=== PATIENT | female | born 1960 | race Two or more races ===

== ENCOUNTER 2024-08-08 09:23 | Day surgery (SDC) | payer MEDICARE, MEDICAID ==
[2024-08-08] VITALS (12 sets, daily range): BP systolic 111–128; BP diastolic 55–85; PULSE 79–86; RESP 9–17; TEMP 98.1; O2SAT 93–99
[~2024-08-08] VITALS: Ht 160 cm; Wt 90.2 kg
[2024-08-08] MEDS: ceFAZolin 2gm in dextrose, iso 50 ML IV ONE (05:30)
[~2024-08-08 09:23] MED LIST: ATOR40TA72 PO; BUPIVACAINE liposomal/PF 13.3 MG/ML 10mL vial IM ONE; BUPIVAcaine 2.5mg/ml inj 50ml vial (contains preservative) ONE; CLON0.5T4 PO; LEVO137T2 PO; LIDOcaine 1% 30ml preserv. free vial ONE; methylene blue (5mg/ml) 50mg/10ml ampul IV ONE
--- NOTE | 2024-08-08 09:49 | ELECTROCARDIOGRAPH REPORT ---
[facility] Test Date: 2024-08-08 Test Time: 09:47:59 Pat Name: NANCY RIVAS Department: [facility]-PRE-OP Patient ID: [facility]-[id number] Room: Gender: F [employer] Rec[employer]ing Manager: KELLEY : 1960 Requested By: DAYANARA PÉREZ Order Number: [id number] Reading MD: Dr. NERI Rizvi Measurements Intervals [place] Rate: 81 P: 43 FL: 143 QRS: -49 QRSD: 116 T: 48 QT: 428 QTc: 497 Interpretive Statements Sinus rhythm Incomplete left bundle branch block Low voltage, precordial leads Probable left ventricular hypertrophy Anterior Q waves, possibly due to LVH Electronically Signed On 08-10-2024 15:06:[address] NERI Rizvi Please click the below link to view image of tracing.
[2024-08-08] MEDS: ringers solution, lacted 1,000 ML IV SCH (09:52)
[2024-08-08] MEDS: famotidine 20mg tablet PO ONE (09:53)
[2024-08-08] MEDS ORDERED: propofol inj 20 ML IV ONE (10:12)
[2024-08-08] MEDS ORDERED: LIDOcaine 2% (20mg/ml) 5ml vial ONE (10:12)
[2024-08-08] MEDS ORDERED: ondansetron/PF 4mg/2ml inj ONE (10:12)
[2024-08-08] MEDS ORDERED: fentaNYL/PF 50MCG/1 ML 2ML syringe ONE (10:12)
[2024-08-08] MEDS ORDERED: dexamethasone sod phosphate 4mg/ml inj. ONE (10:12)
[2024-08-08] MEDS ORDERED: acetaminophen 1,000mg/100ml IV 0 ML IV ONE (10:12)
[2024-08-08] MEDS: midazolam 1 mg/ML 2ml injection IV ONE (10:21)
[2024-08-08] MEDS ORDERED: sevoflurane 250ml liquid IH ONE (10:22)
[2024-08-08 10:24] LABS: BASOPHILS % (AUTO) 0.8 % (0-1); EOSINOPHILS # (AUTO) 0.2 X10'3 (0-0.9); EOSINOPHILS % (AUTO) 3.6 % (0-6); HEMATOCRIT 37.7 % (35.0-45.0); HEMOGLOBIN 12.4 g/dl (12.0-16.0); LYMPHOCYTES # (AUTO) 1.3 X10'3 (1.1-4.8); MEAN CORPUSCULAR HEMOGLOBIN 26.9 PG (27.0-31.0); MEAN CORPUSCULAR HGB CONC 32.7 g/dL (33.0-36.5); MEAN CORPUSCULAR VOLUME 82.2 FL (78-98); MEAN PLATELET VOLUME 8.1 FL (7.4-10.4); MONOCYTES # (AUTO) 0.4 X10'3 (0-0.9); MONOCYTES % (AUTO) 8.1 % (2-12); NEUTROPHILS # (AUTO) 3.6 X10'3 (1.8-7.7); NEUTROPHILS % (AUTO) 64.5 % (42-75); PLATELET COUNT 232 X10'3 (140-440); RED BLOOD COUNT 4.59 X10'6 (4.20-5.60); RED CELL DISTRIBUTION WIDTH 14.1 % (11.5-14.5); WHITE BLOOD COUNT 5.5 X10'3 (4.5-11.0)
[2024-08-08 10:50] LABS: APTT 21 SECONDS (22-32)
[2024-08-08 10:51] LABS: ALANINE AMINOTRANSFERASE 15 U/L (12-78); ALBUMIN 3.5 G/DL (3.4-5.0); ALKALINE PHOSPHATASE 91 IU/L (46-116); ANION GAP 10 (8-16); ASPARTATE AMINO TRANSFERASE 25 U/L (10-37); BILIRUBIN,TOTAL 0.9 MG/DL (0.1-1.0); BLOOD UREA NITROGEN 18 MG/DL (7-18); BUN/CREATININE RATIO 22.2 (10.0-20.0); CHLORIDE 106 MMOL/L (99-107); CREATININE 0.81 MG/DL (0.40-0.90); GLUCOSE 92 MG/DL (70-104); SODIUM 139 MMOL/L (135-145); TOTAL PROTEIN 7.1 G/DL (6.4-8.2); eCRCL 57 ML/MIN; eGFR 71 ML/MIN
[2024-08-08] MEDS ORDERED: ePHEDrine 50MG/ML INJ. ONE (10:58)
[2024-08-08 11:06] LABS: PROTHROMBIN TIME 10.3 SECONDS (9.0-12.0)
[2024-08-08] MEDS ORDERED: labetalol 20mg/4ml (5mg/ml) syringe IV PRN (11:10)
[2024-08-08] MEDS ORDERED: ringers solution, lacted 1,000 ML IV SCH (11:10)
[2024-08-08] MEDS ORDERED: morphine 2 MG/ML inj. syringe IV PRN (11:10)
[2024-08-08] MEDS ORDERED: fentaNYL/PF 50MCG/1 ML 2ML syringe IV PRN ×2 (11:10)
[2024-08-08] MEDS ORDERED: hydrALAZINE 20mg/ml inj. IV PRN (11:10)
[2024-08-08] MEDS ORDERED: ondansetron/PF 4mg/2ml inj IV PRN (11:10)
[2024-08-08] MEDS: BUPIVAcaine/PF 2.5 mg/ml (0.25%) 30ml vial IJ ONE (11:28)
[2024-08-08] MEDS: morphine 4 MG/ML inj SYRINge IV PRN (12:41)
[2024-08-08] MEDS: BUPIVACAINE liposomal/PF 13.3 MG/ML 10mL vial IM ONE (12:45)
--- NOTE | 2024-08-08 12:57 | OPERATIVE REPORT ---
Operative Report Providers to CC CC: DAYANARA PÉREZ DO ~ Date of Procedure: August 08, 2024 Pre-Operative Diagnosis: right breast cancer Post-Operative Diagnosis SAME as PRE-Op Procedure Performed right breast wire localized lumpectomy and right axillary sentinel node biopsy Surgeon: Dr. Dayanara Pérez [employer] technical training manager Anesthesiologist: Dimitri Schulz Findings: right axillary sentinel nodes x 2 Complications None Prosthetics\Implants used: None Estimated Blood Loss: Less than 10 mL Specimen Removed: To right axillary sentinel lymph nodes one hot blue and green at 07/24/2064 the 2nd node hot and green at 190, right wire localized lumpectomy oriented with short stitch superior, long suture lateral, double suture deep Description of Procedure: Sharmin is a 64-year-old female who was diagnosed with a right breast cancer. She was seen and evaluated in my office and had a full workup prior to surgery. Based on the MRI findings she had a 2nd lesion and node left breast that was investigated and turned out to be a benign lymph node after second-look ultrasound and ultrasound-guided core needle biopsy. She was seen in the preoperative holding area this morning after her nuclear medicine injection and wire localization. The right shoulder was marked with my initials. She was s een and evaluated by the anesthesiologist. She was taken into the OR and placed in supine position with the right arm extended. General anesthesia was administered with an LMA. The dressings were removed from the breast and the wire was identified and cut short. I used the Laz node probe to identify the hot activity in the right breast in the upper inner quadrant and also the lower axillary line. 3 mm of methylene blue dye was injected at the 9 o'clock position subareolar tissue. 0.25 mg of indocyanine green dye was injected at the 9:00 and 12:00 positions intradermally. The patient was prepped and draped in a sterile fashion a time-out was performed and agreed upon. Injected 1% lidocaine plain at the incision site in the upper inner quadrant. The incision was made in the upper inner quadrant with a 15 blade. Once I dissected through the deep dermal layer with the cautery I pulled the wire into the incision via superficial dissection. The Calixto retractors were placed in the cavity and I dissected the tissue and wire in a circumferential fashion and posteriorly. The specimen was removed from the cavity, and was oriented with short stitch superior, long suture lateral, double suture deep and placed on the specimen radiograph board. Specimen was identified in two views where the wire and the marker were located in the specimen. I reexamined the cavity and it was irrigat ed hemostasis was achieved with Bovie electrocautery. The cavity measured 10 by 3.5 x 4.5 cm. This acquired defect was prepared for reapproximation of the tissue. I released the superior cavity tissue with cautery on three sides including the posterior side and the 2nd inferior cavity wall was dissected in the same fashion. The cavity was irrigated hemostasis was achieved with Bovie electrocautery the two pedicles were approximated with 3-0 ellie suture to feel the acquired defect. At this point I turned my attention to the right axillary sentinel lymph node biopsy. I scanned the right axilla with the true node probe to identify a hot spot and made my incision with a 15 blade after injecting 1% lidocaine plain. With retractors in place I dissected through the axillary fascia. The probe identified a hot spot and was also blue. I used the ice by scanner which identified a very bright spot consistent with the blue node. This node was carefully dissected with cautery and LigaSure. It was removed from the cavity and had a count of 07/24/2064. It was placed in formalin. I identified a 2nd lymph node more superior anteriorly that was hot only and it was identified with the ice by scanner. It was carefully excised in the same fashion removed from the cavity had a count of 190. It was placed off the field in formalin as well. The cavity was irrigated and hemostasis was achieved with Bovie electrocautery. The fascia was reapproximated with 3-0 Vicryl suture and the skin was closed with 3-0 Vicryl suture and 4-0 Monocryl running subcuticular stitch. I returned to the breast cavity and closed the skin with 3-0 Vicryl interrupted sutures and a 4-0 Monocryl running subcuticular stitch. Both areas were cleaned and 0.25% Marcaine mixed Exparel 50% mixture were injected at both sites. Dermabond was placed on both skin sites and clean dressings. A pressure dressing was placed on the right axilla and secured with tape. A breast binder was placed on the patient and she was taken recovery in stable condition without complication. Counts repoted as correct: Yes DAYANARA PÉREZ DO August 08, 2024 12:57
[2024-08-08] MEDS: acetaminophen 1,000mg/100ml IV 100 ML IV ONE (13:03)
[2024-08-08] MEDS: HYDROcodone/acetaminophen 5mg/325mg tablet PO ONE (14:01)
== END 2024-08-08 14:20 | disposition home or self-care (01) ==
LOC: PAS 09:23
PROVIDERS: ATTEND Surgery
DX: C50.411 Malignant neoplasm of upper-outer quadrant of right female breast (principal); E03.9 Hypothyroidism, unspecified; E78.5 Hyperlipidemia, unspecified; C73 Malignant neoplasm of thyroid gland; F41.9 Anxiety disorder, unspecified; Z79.01 Long term (current) use of anticoagulants; Z90.710 Acquired absence of both cervix and uterus; Z98.51 Tubal ligation status; Z90.49 Acquired absence of other specified parts of digestive tract; Z79.899 Other long term (current) drug therapy
CPT/HCPCS: 19125; 36415; 38525; 38900; 76098; 80053; 85025; 85610; 85730; 93005; A4215; A4618; A6258; A6446; A7000; J0131; J0666; J0690; J1100; J2003; J2250; J2270; J2371; J2405; J2704; J3010; J3490; J7030; J7120; Q9968; Z7506; Z7508; Z7512; Z7610; A4615